=== PATIENT | female | born 1975 | race African-American/Black ===

== ENCOUNTER 2021-01-23 08:07 | Emergency (ER) | payer OTHER, SELFPAY ==
--- NOTE | ~2021-01-23 | US_ITS ---
US breast RT limited DATE: 01/23/2021 09:04 INDICATION: Right breast mass with tenderness. History of breast reduction surgery in 2012. TECHNIQUE: Targeted right breast ultrasound at area of clinical complaint at 9:00 8 cm from nipple COMPARISON: None FINDINGS: There is an approximately 3 cm sonolucent lesion with some faint internal echoes, with sugg estion of a mildly thickened soft tissue capsule. Differential diagnosis includes abscess versus comp licated cyst. Consider aspiration for differential diagnostic purposes. The patient reportedly has not had any prior mammogram.. Diagnostic mammogram is recommended. IMPRESSION: BI-RADS Category 0: Incomplete; need additional imaging evaluation Recommendation: Diagnostic mammogram Reviewed, dictated and finalized at [facility]. Reviewed, dictated and finalized at [facility].
[2021-01-23 08:11] VITALS: BP 148/88; PULSE 81; RESP 18; TEMP 36.8; O2SAT 100
--- NOTE | 2021-01-23 08:30 | ED_ITS ---
HPI - Skin/Abscess/Foreign Bdy General Chief complaint: Skin/Abscess/Foreign Body Stated complaint: lump on breast Time Seen by Provider: 01/23/21 08:24 History of Present Illness HPI narrative: Painful lump in her right breast for the past 2 days. No skin changes noted. She reports doing regular self exam and is sure that this is new. No systemic symptoms. Related Data Allergies Allergy/AdvReac Type Severity Reaction Status Date / Time No Known Allergies Allergy Verified 01/23/21 08:15 Review of Systems Review of Systems: All systems reviewed & are unremarkable except as noted in HPI and below Constitutional: Constitutional: Denies chills and Denies fever(s) Respiratory: Respiratory: Denies dyspnea PMFSH Social History Social History Gender identity (if verbalized by the patient): Female Exam Const: General: healthy appearing, no acute distress and alert Orientati on/consciousness: patient oriented x3 HENMT: Head: normal to inspection Chest: Breast/axilla inspection: abnormal inspection of the breast (Tender mass in right lateral breast) Resp: Effort & Inspection: normal respiratory effort Auscultation: clear to auscultation bilaterally Cardio: Rate: regular rate Rhythm: regular rhythm Skin: General skin exam: normal color Rashes: no rashes Wounds: no wounds Neuro: General: patient oriented x3 and moves all extremities Speech: normal speech Extrem: General: normal to inspection Course Vital Signs Vital signs: Vital Signs Temperature 36.8 C 01/23/21 08:11 Pulse Rate 81 01/23/21 08:11 Respiratory Rate 18 01/23/21 08:11 Blood Pressure 148/88 H 01/23/21 08:11 Pulse Oximetry 100 01/23/21 08:11 Temperature 36.8 C 01/23/21 08:11 Pulse Rate 81 01/23/21 08:11 Respiratory Rate 18 01/23/21 08:11 Blood Pressure 148/88 H 01/23/21 08:11 Pulse Oximetry 100 01/23/21 08:11 Procedures Abscess I/D chest: Date of Incision: 01/23/21 Side (if applicable): right Local Anesthetic: lidocaine 1% and with epi Amount of anesthesia used (mL): 8 Technique: needle aspiration Amount of fluid expressed (mL): 14 Irrigation: No I&D Results: Other (Green fluid) Complications: pain Abcess I&D Additional Comments: Done under US guidance MDM - Skin/Abscess/Foreign Bdy Differential Diagnosis Differential diagnosis: Likely other (breast abscess) Medical Records Attestation: I reviewed the patient's medical records. Discharge Plan Discharge Clinical Impression: Abscess of right breast Patient Disposition: Home, Self-Care Condition: Stable Instructions: Antibiotic Form, Abscess (ED), Breast Mass (ED) Prescriptions: New clindamycin HCl 300 mg capsule 300 mg PO Q8H Qty: 20 RF: 0 Follow-up/Referrals: Hiram,Tabitha Epps MD [Primary Care Provider] - Jonathan Sorensen DO [Physician] -
== END 2021-01-23 12:05 | disposition home or self-care (01) ==
PROVIDERS: Emergency Provider Emergency Medicine; PCP Internal Medicine Gastroenterology
DX: N61.1 Abscess of the breast and nipple (principal)
CPT/HCPCS: 10160; 76642; 87070; 87075; 87076; 87205; 99284; J7030